=== PATIENT | female | born 1940 | race Caucasian/White ===

== ENCOUNTER 2017-06-20 20:23 | Emergency (ER) | payer MEDICARE ==
--- NOTE | 2017-06-20 21:51 | ERPHSYRPT ---
- History of Present Illness Time Seen by Provider: 06/20/17 21:40 Source: patient Exam Limitations: no limitations Patient Subjective Stated Complaint: slid down small hill in the [place], and recieved skin tears on lt forearm. Triage Nursing Assessment: 3 skin tears noted on lt forearm. distal tear 3 cm. medial tear 4 cm and proximal tear 5 cm. denies other sx. denies loc. sensation of hand normal Physician History: The patient is a right-handed 76-year-old female with her complaining that she slipped on a hill while much reminding this afternoon, causing some skin tears to her left forearm. She had her last tetanus vaccination within 1 year. She denies numbness or tingling. Her past medical history is significant for high cholesterol, congestive heart failure, hypertension, COPD, stroke, and stage IV renal disease. Occurred: this afternoon Reason for Fall: slipped, fell from standing pos Injuries/Pain Location: upper extremity (left forearm) Loss of Consciousness: no loss of consciousness Quality: other (skin tears) Severity of Pain-Max: mild Severity of Pain-Current: mild Modifying Factors: Improves With: nothing Associated Symptoms (Fall): denies symptoms Allergies/Adverse Reactions: aspirin Adverse Reaction (Intermediate, Verified 06/04/15 15:08) atropine sulfate [From ] Adverse Reaction (Intermediate, Verified 15:08) Lightheadedness hydromorphone HCl [From Dilaudid] Adverse Reaction (Intermediate, Verified 06/03 15:09) Vomiting hyoscyamine sulfate [From ] Adverse Reaction (Intermediate, Verified 07/14 15:08) Lightheadedness phenobarbital [From ] Adverse Reaction (Intermediate, Verified 06/04/15 15:08) Lightheadedness propoxyphene napsylate [From Darvocet-N] Adverse Reaction (Intermediate, Verified 06/04/15 15:08) Lightheadedness scopolamine hydrobromide [From ] Adverse Reaction (Intermediate, Verified 06/04/15 15:08) Lightheadedness Home Medications: Albuterol 2.5 mg/0.5 ml [PROVENTIL Solution 2.5 MG/0.5 ML] 2 inh Q12H PRN PRN 04/05/15 [History] Amlodipine Besylate 5 mg [Norvasc 5 mg] 5 mg PO DAILY 04/05/15 [History] Clopidogrel Bisulfate [Plavix] 75 mg PO DAILY 04/05/15 [History] Diphenoxylate HCl/Atropine [Lomotil] 1 tab PO Q4-6HPRN PRN 04/05/15 [ History] Docusate Sodium [Colace] 1 tab PO DAILY PRN 04/05/15 [History] Fenofibrate Nanocrystallized [Tricor] 1 tab PO DAILY 04/05/15 [History] Fexofenadine HCl [Solange] 180 mg PO DAILY 04/05/15 [History] Hydrochlorothiazide 25 mg PO DAILY 04/05/15 [History] Hydrocodone/Acetaminophen [Vicodin 5-300 mg Tablet] 5 mg PO Q4-6HPRN PRN [History] Lansoprazole [Prevacid] 30 mg PO DAILY 04/05/15 [History] Mometasone Furoate [Nasonex] 1 each Q12H PRN PRN 04/05/15 [History] Nebivolol HCl [Bystolic] 10 mg PO DAILY 04/05/15 [History] Nystatin 1 each Q12H PRN PRN 04/05/15 [History] Paricalcitol [Zemplar] 1 mcg PO 3XW 04/05/15 [History] Potassium Chloride 20 mg PO DAILY 04/05/15 [History] Simvastatin 40 mg [Zocor 40 mg] 20 mg PO DAILY 04/05/15 [History] Venlafaxine HCl [Effexor] 150 mg PO DAILY 04/05/15 [History] Budesonide/Formoterol Fumarate [Symbicort 160-4.5 Mcg Inhaler] 6 gm IH DAILY 07/14 [History] Donepezil HCl 10 mg [Aricept 10 MG] 10 mg PO HS 06/04/15 [History] Ergocalciferol (Vitamin D2) [Vitamin D2] 1 unit PO WEEKLY 06/04/15 [History] Folic Acid 1 tab PO DAILY 06/04/15 [History] Hx Tetanus, Diphtheria Vaccination/Date Given: Yes Hx Influenza Vaccination/Date Given: No Hx Pneumococcal Vaccination/Date Given: Yes - Review of Systems Constitutional: No Fever, No Chills Eyes: No Symptoms Ears, Nose, & Throat: No Symptoms Respiratory: No Cough, No Dyspnea Cardiac: No Chest Pain, No Edema, No Syncope Abdominal/Gastrointestinal: No Abdominal Pain, No Nausea, No Vomiting, No Diarrhea Genitourinary Symptoms: No Dysuria Musculoskeletal: Fall, Injury Skin: Other (skin tears) Neurological: No Dizziness, No Focal Weakness, No Sensory Changes Psychological: No Symptoms Endocrine: No Symptoms Hematologic/Lymphatic: No Symptoms Immunological/Allergic: No Symptoms All Other Systems: Reviewed and Negative - Past Medical History Pertinent Past Medical History: Yes Neurological History: Stroke, TIA ENT History: No Pertinent History Cardiac History: Hypertension Respiratory History: Bronchitis, COPD Endocrine Medical History: No Pertinent History Musculoskeletal History: Arthritis GI Medical History: Colorectal Cancer, Hernia History: Renal Disease Psycho-Social History: No Pertinent History Female Reproductive Disorders: No Pertinent History Other Medical History: AAA. Renal failure. prior skin tears on same arm (lt) - Past Surgical History Past Surgical History: Yes Neuro Surgical History: No Pertinent History Cardiac: No Pertinent History Respiratory: No Pertinent History Gastrointestinal: Hemorrhoidectomy Genitourinary: No Pertinent History Musculoskeletal: Other Female Surgical History: Hysterectomy Other Surgical History: FISTULA PLACED; PORT PLACED FOR CHEMO X2; BLADDER SURGERY; LEFT FOOT SURGERY; MASS REMOVED FROM HER LEFT SHOULDER AREA - Social History Smoking Status: Former smoker Exposure to second hand smoke: Yes Drug Use: none Patient Lives Alone: Yes - Female History Hx Now: No - Nursing Vital Signs Nursing Vital Signs: Initial Vital Signs Temperature 98.1 F 06/20/17 20:39 Pulse Rate 76 06/20/17 20:39 Respiratory Rate 20 06/20/17 20:39 Blood Pressure 160/67 06/20/17 20:39 O2 Sat by Pulse Oximetry 97 06/20/17 20:39 Pain Scale Pain Intensity 10 - [place] Coma Score Best Eye Response ([place]): (4) open spontaneously Best Verbal Response ([place]): (5) oriented Best Motor Response ([place]): (6) obeys commands [place] Total: 15 - Physical Exam General Appearance: no apparent distress, alert Head Injury: no evidence of injury Eye Exam: PERRL/EOMI ENT Exam: airway nml Neck Exam: normal inspection, No tenderness Respiratory/Chest Exam: normal breath sounds, No chest tenderness, No respiratory distress Cardiovascular Exam: normal heart sounds, regular rate/rhythm Gastrointestinal Exam: soft, No tenderness, No distention, No guarding, No ecchymosis Rectal Exam: not done Back Exam: normal inspection, No vertebral tenderness Extremity Exam: evidence of injury (skin tears to left forearm) Neurologic Exam: alert, oriented x 3, cooperative, sensation nml, No motor deficits Skin Exam: other (Examination of the left forearm reveals 3 skin tears. Distal is 3 cm, mid forearm skin tear is 4 cm, and proximal skin tear is 5 cm.) SpO2 Interpretation: normal SpO2: 97 Oxygen Delivery: Room Air Ordered Tests: Active Orders 24 hr Category Date Time Status Wound Care STAT Care 06/20/17 21:58 Active - Progress Progress: improved Counseled pt/family regarding: diagnosis, need for follow-up - Departure Time of Disposition: 22:40 Departure Disposition: Home Clinical Impression: Skin tear Condition: Stable Critical Care Time: No Referrals: VENTURA RICHMOND [Primary Care Provider] - Additional Instructions: You have several skin tears to the left forearm as result of slipping and falling down the hill while mushroom hunting today. The skin tears were closed with Steri-Strips. You were given cephalexin 500 mg orally in the ER. Continue taking cephalexin 500 mg 2 times a day for 10 days. Follow-up as needed. Prescriptions: Cephalexin [Keflex] 500 mg PO BID #20 capsule
[2017-06-20] MEDS ORDERED: KEFLEX 500 MG PO ONE (22:44)
[2017-06-20] MEDS ORDERED: KEFLEX 500 MG ONE (22:46)
[2017-06-20 23:00] VITALS: BP 170/69; PULSE 72; O2SAT 98
== END 2017-06-20 23:00 | disposition home or self-care (01) ==
LOC: ED 20:23
DX: S51.812A Laceration without foreign body of left forearm, initial encounter (principal); W17.89XA Other fall from one level to another, initial encounter; Y93.01 Activity, walking, marching and hiking; Z79.01 Long term (current) use of anticoagulants; Z79.899 Other long term (current) drug therapy
CPT/HCPCS: 99283; A9270-GY

== ENCOUNTER 2017-06-30 16:51 | Emergency (ER) | payer MEDICARE ==
--- NOTE | 2017-06-30 17:15 | ERPHSYRPT ---
- History of Present Illness Time Seen by Provider: 06/30/17 17:07 Source: patient Exam Limitations: clinical condition Patient Subjective Stated Complaint: pt brought to ed per ems from dialysis- states that she fell wednesday and it hurts to cough or deep breath-states that last night she was walking and got lost in her neighborhood-pt states that it started turning dark and things started looking the same Triage Nursing Assessment: pt pink warm and [id number] all questions correctly-moving all extremities-bruising noted to face-right flank-right arm- pt speaking in complete sentences with ease Physician History: PATIENT WITH A HISTORY OF CHRONIC RENAL FAILURE ON HEMODIALYSIS, HAS FREQUENT FALLS X 3 WEEKS. SUSTAINED A LEFT FOREARM SKIN TEAR FROM FALL ON 06/20/2017. FELL 3 DAYS AGO ONTO FACE SUSTAINED BRUISING AROUND RIGHT EYE, RIGHT SHOULDER AND RIGHT UPPER CHEST WALL. DENIES NECK PAIN , LOSS OF CONSCIOUSNESS, NUMBNESS , TINGLING OR WEAKNESS IN EXTREMITIES. Occurred: days ago Reason for Fall: lost balance Injuries/Pain Location: head, face, upper extremity, lower Loss of Consciousness: no loss of consciousness Quality: sharpness Severity of Pain-Max: moderate Severity of Pain-Current: moderate Modifying Factors: Improves With: movement Allergies/Adverse Reactions: aspirin Adverse Reaction (Intermediate, Verified 06/30/17 17:05) atropine sulfate [From ] Adverse Reaction (Intermediate, Verified 17:05) Lightheadedness hydromorphone HCl [From Dilaudid] Adverse Reaction (Intermediate, Verified 06/30 17:05) Vomiting hyoscyamine sulfate [From ] Adverse Reaction (Intermediate, Verified 04/18 17:05) Lightheadedness phenobarbital [From ] Adverse Reaction (Intermediate, Verified 06/30/17 17:05) Lightheadedness propoxyphene napsylate [From Darvocet-N] Adverse Reaction (Intermediate, Verified 06/30/17 17:05) Lightheadedness scopolamine hydrobromide [From ] Adverse Reaction (Intermediate, Verified 06/30/17 17:05) Lightheadedness Hx Tetanus, Diphtheria Vaccination/Date Given: Yes Hx Influenza Vaccination/Date Given: No Hx Pneumococcal Vaccination/Date Given: Yes Immunizations Up to Date: Yes - Review of Systems Constitutional: No Fever, No Chills Eyes: No Symptoms Ears, Nose, & Throat: No Symptoms, Other (FACIAL PAIN AND BRUISING) Respiratory: Dyspnea on Exertion ([place]), No Cough, No Dyspnea Cardiac: Other (CHEST WALL TENDERNESS, BRUISING), No Chest Pain, No Edema, No Syncope Abdominal/Gastrointestinal: No Abdominal Pain, No Nausea, No Vomiting, No Diarrhea Genitourinary Symptoms: No Symptoms, No Dysuria Musculoskeletal: Injury, Joint Pain, Joint Swelling, No Back Pain, No Neck Pain Skin: No Rash Neurological: No Dizziness, No Focal Weakness, No Sensory Changes Psychological: No Symptoms Endocrine: No Symptoms All Other Systems: Reviewed and Negative - Past Medical History Pertinent Past Medical History: Yes Neurological History: Stroke, TIA ENT History: No Pertinent History Cardiac History: Hypertension Respiratory History: Bronchitis, COPD Endocrine Medical History: No Pertinent History Musculoskeletal History: Arthritis GI Medical History: Colorectal Cancer, Hernia History: Renal Disease Psycho-Social History: No Pertinent History Female Reproductive Disorders: No Pertinent History Other Medical History: AAA. Renal failure - Past Surgical History Past Surgical History: Yes Neuro Surgical History: No Pertinent History Cardiac: No Pertinent History Respiratory: No Pertinent History Gastrointestinal: Hemorrhoidectomy Genitourinary: No Pertinent History Musculoskeletal: Other Female Surgical History: Hysterectomy Other Surgical History: FISTULA PLACED; PORT PLACED FOR CHEMO X2; BLADDER SURGERY; LEFT FOOT SURGERY; MASS REMOVED FROM HER LEFT SHOULDER AREA - Social History Smoking Status: Former smoker Exposure to second hand smoke: Yes Drug Use: none Patient Lives Alone: Yes - Nursing Vital Signs Nursing Vital Signs: Initial Vital Signs Temperature 97.8 F 06/30/17 16:54 Pulse Rate 90 06/30/17 16:54 Respiratory Rate 20 06/30/17 16:54 Blood Pressure 178/75 06/30/17 16:54 O2 Sat by Pulse Oximetry 97 06/30/17 16:54 Pain Scale Pain Intensity 10 - [place] Coma Score Best Eye Response ([place]): (4) open spontaneously Best Verbal Response ([place]): (5) oriented Best Motor Response ([place]): (6) obeys commands [place] Total: 15 - Physical Exam General Appearance: no apparent distress Head Injury: ecchymosis, tenderness (RIGHT PERIORBITAL ECCHYMOSIS, NO FACIAL CREPITUS ) Eye Exam: PERRL/EOMI ENT Exam: airway nml, evidence of ENT injury Neck Exam: normal inspection, tenderness (THERE IS MINIMAL POST CERVICAL SPINAL TENDERNESS) Respiratory/Chest Exam: chest tenderness (WITH ECCHYMOSIS RIGHT 2-4 RIBS NO CREPITUS), normal breath sounds Cardiovascular Exam: normal heart sounds Gastrointestinal Exam: soft, normal bowel sounds, No tenderness, No distention, No guarding, No ecchymosis Extremity Exam: normal range of motion (SLIGHT ECCHYMOSIS RIGH HUMERAL HEAD, NO CREPITUS OR SWELLING.) Peripheral Pulses: carotid (R): 2+, carotid (L): 2+, femoral (R): 2+, femoral (L ): 2+, dorsalis-pedis (R): 2+, dorsalis-pedis (L): 2+ Neurologic Exam: alert, oriented x 3, cooperative, 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 SpO2 Interpretation: normal SpO2: 97 Oxygen Delivery: Room Air - Radiology Exams Right Shoulder X-ray Interpretation: Interpreted by me, Negative (NO FRACTURE OR DISLOCATION) Chest X-ray Interpretation: Interpreted by me, Negative, Other (OLD RIGHT 7TH AND 9TH RIB HEALING RIB FRACTURES) Right Ribs X-ray Interpretation: Interpreted by me (RIGHT HEALING 7TH AND 9TH RIBS FRACTURE ) - CT Exams Head CT Interpretation: Discussed w/radiologist, No/Intracranial Hemorrhag (RIGHT MAXILLARY SINUS DISEASE) Cervical Spine CT Interpretation: Discussed w/radiologist (MULTIPLE DDD , NO FRACTURE) Maxillofacial Bones CT Interpretation: Discussed w/radiologist (RIGHT ETHMOID AND RIGHT MAXILLARY SINUS DISEASE) Ordered Tests: Active Orders 24 hr Category Date Time Status CERVICAL SPINE WO CONTRAST [CT] Stat Exams 06/30/17 16:52 Taken CHEST 1 VIEW (PORTABLE) Stat Exams 06/30/17 16:57 Taken FACIAL BONES WO CONTRAST [CT] Stat Exams 06/30/17 16:52 Taken FOREARM Stat Exams 06/30/17 16:59 Taken HEAD WITHOUT CONTRAST [CT] Stat Exams 06/30/17 16:52 Taken RIBS UNILATERAL Stat Exams 06/30/17 16:55 Taken SHOULDER Stat Exams 06/30/17 17:05 Taken - Progress Counseled pt/family regarding: diagnosis, need for follow-up, rad results - Departure Time of Disposition: 19:05 Departure Disposition: Home Clinical Impression: MULTIPLE FACIAL CONTUSIONS, OLD RIGHT HEALING RIB FRACTURES 7TH 9TH Condition: Stable Critical Care Time: No Referrals: BASILIO,SHREELEKHA [Primary Care Provider] - Additional Instructions: CONTINUE ANTIBIOTIC KEFLEX DIRECTED. THEN BEGIN OMNICEF 300MG TWICE DAILY FOR 1 WEEK FOR TREATMENT OF SINUS INFECTION. CONSULT YOUR PRIMARY CARE PROVIDER FOR FOLLOWUP. AMBULATE WITH WALKER ASSISTANCE AT ALL TIMES Prescriptions: Cefdinir [Omnicef 300 mg] 300 mg PO BID #14 capsule
[2017-06-30] MEDS ORDERED: Catapres 0.1 MG PO ONE (19:22)
[2017-06-30] MEDS ORDERED: Catapres 0.1 MG ONE (19:23)
[2017-06-30 20:19] VITALS: BP 184/82; PULSE 91; O2SAT 96
--- NOTE | 2017-07-01 08:33 | XRAY ---
Indication: Facial pain and bruising following fall June 20, 2017. Multiple contiguous axial images obtained through the facial bones. Sagittal and coronal reformatted images obtained. Comparison: February 11, 2017. Several images slightly degraded by motion artifact. Patient is edentulous. No acute fracture, suspicious bony lesions, or radiopaque foreign body. Orbits including roof, ferreira, and floors intact. There is moderate mucosal thickening of the right ethmoid and right maxillary sinuses with fluid leveling. Remaining paranasal sinuses and nasal passages are clear. Mild nasal septal deviation to the left. Visualized noncontrasted soft tissues unremarkable. CT head and CT cervical spine reported separately. Impression: 1. Motion artifact. 2. No acute fracture. 3. Incidental paranasal sinus disease. CT DI 59.47
--- NOTE | 2017-07-01 08:34 | XRAY ---
Indication: Facial pain and bruising following fall June 20, 2017. Multiple contiguous axial images obtained through the head without contrast. Comparison: None Images through the base of the brain slightly degraded by motion artifact. Right caudate head and right basal ganglia remote lacunar infarct. Acute intracranial hemorrhage, abnormal extra-axial fluid collection, or mass effect. Fourth ventricle is midline without hydrocephalus. Lambert-white matter differentiation preserved. Bony calvarium intact with hyperostosis frontalis interna. There is moderate mucosal thickening of the right ethmoid and visualized right maxillary sinus is with fluid leveling. Remaining visualized paranasal sinuses and mastoid air cells are clear. Impression: 1. Motion artifact. 2. Right caudate head and right basal ganglia remote lacunar infarcts. 3. No acute intracranial abnormalities. 4. Incidental paranasal sinus disease. CT DI 49.85
--- NOTE | 2017-07-01 08:35 | XRAY ---
Indication: Facial pain and bruising following fall June 20, 2017. Multiple contiguous axial images obtained through the cervical spine. Sagittal and coronal reformatted images obtained. Comparison: None. Axial images negative for acute fracture, suspicious bony lesions, or spinal canal stenosis. Mild C4-C6 degenerative endplate spurring. Also mild multilevel bilateral degenerative facet arthropathy. Sagittal and coronal reformatted images demonstrates normal alignment. Minimal C5-C6 disc space narrowing. No acute compression fracture, subluxation, or jumped facet. Normal-appearing craniocervical junction. Visualized noncontrasted soft tissues demonstrates minimal right carotid calcifications. CT head and CT facial bones reported separately. Impression: 1. Negative acute fracture/subluxation. 2. Multilevel degenerative changes. CT DI 52.40
--- NOTE | 2017-07-01 08:37 | XRAY ---
Indication: Right chest wall bruising following fall. Comparison: February 04, 2016. Portable chest again hyperinflated with chronic lung markings and tiny calcific granulomas. No focal infiltrate, consolidation, pneumothorax, or large effusion. Heart is borderline enlarged. Vascularity normal. Previous left Port-A-Cath has been removed. Bony thorax again demonstrates osteopenia and degenerative changes. Right ribs reported separately. Impression: Nonacute chest with chronic features.
--- NOTE | 2017-07-01 08:41 | XRAY ---
Indication: Right chest wall bruising following fall. Comparison: None 2 views of the right ribs demonstrates nondisplaced lateral right 2nd rib acute fracture. Elsewhere old posterior lateral /8/9 old rib fractures, osteopenia, and mild multilevel degenerative spondylosis. Chest reported separately. Comment: 2nd rib fracture not reported on preliminary interpretation by the ER clinician. Telephone report given to Dr. Castillo in the ER at 0845 hrs. on July 01, 2017.
--- NOTE | 2017-07-01 08:45 | XRAY ---
Indication: Pain following fall. Comparison: None 2 views of the left forearm demonstrates nondisplaced proximal radial fracture extending to the head of the radius with soft tissue swelling. Elsewhere osteopenia and surgical clips anterior to the elbow. Comment: Fracture not reported on linear interpretation by the ER clinician. Telephone report given to Dr. Castillo in the ER at 0845 hrs. on July 01, 2017.
--- NOTE | 2017-07-01 08:47 | XRAY ---
Indication: Pain following fall. Comparison: None 3 views of the right shoulder demonstrates osteopenia, multilevel degenerative spondylosis, and mild AC degenerative arthropathy. Soft tissues unremarkable. Right ribs reported separately.
== END 2017-06-30 20:30 | disposition home or self-care (01) ==
LOC: ED 16:51
DX: S00.11XA Contusion of right eyelid and periocular area, initial encounter (principal); R51 Headache; S51.812A Laceration without foreign body of left forearm, initial encounter; M25.511 Pain in right shoulder; R07.89 Other chest pain; M79.662 Pain in left lower leg; M79.661 Pain in right lower leg; M79.602 Pain in left arm; M79.601 Pain in right arm; W19.XXXA Unspecified fall, initial encounter; Z91.81 History of falling
CPT/HCPCS: 70450; 70486; 71045; 71100; 72125; 73030; 73090; 99283; 99284; A9270-GY

== ENCOUNTER 2018-01-17 20:04 | Observation (INO) | payer MEDICARE ==
--- NOTE | 2018-01-17 21:00 | ERPHSYRPT ---
- History of Present Illness Time Seen by Provider: 01/17/18 20:47 Source: patient, family Exam Limitations: no limitations Patient Subjective Stated Complaint: Fall Triage Nursing Assessment: Patient brought into ED via w/c at this time. Patient complains of a fall prior to 1900. Patient states she was eating at a dinner at her [employer] and got up out of chair and fell, but body twisted around causing her chin to hit the table and falling to paramjit arms. Patient denies hitting head or losing consciousness. Patient complains of neck pain, left arm and left knee pain 11/08. Patient has various, multiple bruising noted to paramjit arms, paramjit knees, and breast. Bruise to breast has a hard area in the middle of it. Patient A+ O X 3. Patient lungs clear a/p paramjit. Physician History: The patient is a 77-year-old female complaining that she fell at a [employer] supper [place]. She has a hard time walking and uses a walker. She did not use the walker while she was getting up. She twisted and fell hitting her chin, upper chest, right breast right forearm, right knee, and left knee. She did not lose consciousness nor hit her head. She complains of pain in her neck and knees. She has a skin tear that was bandaged at [employer] on her right forearm. She does not know when her last tetanus vaccination was given. Her past medical history is significant for stroke, renal failure, fistula for dialysis, rectal cancer, COPD. Occurred: this evening Reason for Fall: lost balance, fell from standing pos Injuries/Pain Location: neck, upper extremity (right forearm), chest, lower extremity (bilateral knees) Loss of Consciousness: no loss of consciousness Quality: aching Severity of Pain-Max: moderate Severity of Pain-Current: mild Modifying Factors: Improves With: nothing Associated Symptoms (Fall): extremity injury, neck pain Allergies/Adverse Reactions: aspirin Adverse Reaction (Intermediate, Verified 01/17/18 20:28) atropine sulfate [From ] Adverse Reaction (Intermediate, Verified 20:28) Lightheadedness hydromorphone HCl [From Dilaudid] Adverse Reaction (Intermediate, Verified 01/17 20:28) Vomiting hyoscyamine sulfate [From ] Adverse Reaction (Intermediate, Verified 20:28) Lightheadedness phenobarbital [From ] Adverse Reaction (Intermediate, Verified 01/17/18 20:28) Lightheadedness propoxyphene napsylate [From Darvocet-N] Adverse Reaction (Intermediate, Verified 01/17/18 20:28) Lightheadedness scopolamine hydrobromide [From ] Adverse Reaction (Intermediate, Verified 01/17/18 20:28) Lightheadedness Hx Tetanus, Diphtheria Vaccination/Date Given: Yes Hx Influenza Vaccination/Date Given: Yes Hx Pneumococcal Vaccination/Date Given: Yes Immunizations Up to Date: No - Review of Systems Constitutional: No Fever, No Chills Eyes: No Symptoms Ears, Nose, & Throat: No Symptoms Respiratory: No Cough, No Dyspnea Cardiac: Chest Pain Abdominal/Gastrointestinal: No Abdominal Pain, No Nausea, No Vomiting, No Diarrhea Genitourinary Symptoms: No Dysuria Musculoskeletal: Fall, Injury Skin: No Rash Neurological: No Dizziness, No Focal Weakness, No Sensory Changes Psychological: No Symptoms Endocrine: No Symptoms Hematologic/Lymphatic: No Symptoms Immunological/Allergic: No Symptoms All Other Systems: Reviewed and Negative - Past Medical History Pertinent Past Medical History: Yes Neurological History: Stroke, TIA ENT History: No Pertinent History Cardiac History: Hypertension Respiratory History: Bronchitis, COPD Endocrine Medical History: No Pertinent History Musculoskeletal History: Arthritis GI Medical History: Colorectal Cancer, Hernia History: Renal Disease Psycho-Social History: No Pertinent History Female Reproductive Disorders: No Pertinent History Other Medical History: AAA. Renal failure - Past Surgical History Past Surgical History: Yes Neuro Surgical History: No Pertinent History Cardiac: No Pertinent History Respiratory: No Pertinent History Gastrointestinal: Hemorrhoidectomy Genitourinary: No Pertinent History Musculoskeletal: Other Female Surgical History: Hysterectomy Other Surgical History: FISTULA PLACED; PORT PLACED FOR CHEMO X2; BLADDER SURGERY; LEFT FOOT SURGERY; MASS REMOVED FROM HER LEFT SHOULDER AREA - Social History Smoking Status: Former smoker Exposure to second hand smoke: Yes Drug Use: none Patient Lives Alone: Yes - Female History Hx Last Menstrual Period: menopausal Hx Now: No - Nursing Vital Signs Nursing Vital Signs: Initial Vital Signs Temperature 97.7 F 01/17/18 20:28 Pulse Rate 70 01/17/18 20:28 Respiratory Rate 18 01/17/18 20:28 Blood Pressure 175/69 01/17/18 20:28 O2 Sat by Pulse Oximetry 96 01/17/18 20:28 Pain Scale Pain Intensity 8 - [place] Coma Score Best Eye Response ([place]): (4) open spontaneously Best Verbal Response ([place]): (5) oriented Best Motor Response ([place]): (6) obeys commands [place] Total: 15 - Physical Exam General Appearance: no apparent distress, alert Head Injury: no evidence of injury Eye Exam: PERRL/EOMI ENT Exam: airway nml Neck Exam: trachea midline, pain on movement of neck, other (bruising and tenderness to anterior neck, small bruise to chin) Respiratory/Chest Exam: chest tenderness, ecchymosis (tenderness and bruising to upper anterior chest. Large hematoma to right breast.) Cardiovascular Exam: normal heart sounds, regular rate/rhythm Gastrointestinal Exam: soft, No tenderness, No distention, No guarding, No ecchymosis Rectal Exam: not done Back Exam: normal inspection, No vertebral tenderness Extremity Exam: pain with movement, tenderness (tenderness and bruising to bilateral knees. superficial abrasion to right knee; skin tear to right forearm. ) Neurologic Exam: alert, oriented x 3, cooperative, sensation nml, No motor deficits Skin Exam: normal color, warm, dry, ecchymosis (right breast, bilateral knees, chest, neck.), laceration (skint tear to right forearm that was repaired with steri-strips at [employer].) SpO2 Interpretation: normal SpO2: 96 Oxygen Delivery: Room Air - Radiology Exams Right Forearm X-ray Interpretation: Interpreted by me, Negative, No Fracture, No Subluxation Left Knee X-ray Interpretation: Negative, No Fracture, No Subluxation - CT Exams Head CT Interpretation: Negative (stable nonacute senile brain; remote lacunar infarcts; incidental paranasal sinus disease again.), Tele-radiologist Report ( per Dr Quiñones) Cervical Spine CT Interpretation: Tele-radiologist Report (per Dr Quiñones), No Fracture, No Subluxation Ordered Tests: Active Orders 24 hr Category Date Time Status CERVICAL SPINE WO CONTRAST [CT] Stat Exams 01/17/18 21:09 Taken FOREARM Stat Exams 01/17/18 21:10 Taken HEAD WITHOUT CONTRAST [CT] Stat Exams 01/17/18 21:09 Ordered KNEE (3 VIEWS) Stat Exams 11/19/18 21:09 Ordered KNEE (3 VIEWS) Stat Exams 01/17/18 21:12 Ordered Medication Summary Discontinued Medications Generic Name Dose Route Start Last Admin Trade Name Andreas PRN Reason Stop Dose Admin Acetaminophen 1,000 mg 01/17/18 21:08 01/17/18 21:23 Tylenol Extra Strength 500 Mg PO 01/17/18 21:09 1,000 mg STAT STA Administration Acetaminophen Confirm 01/17/18 21:21 Tylenol Extra Strength 500 Mg Administered 01/17/18 21:22 Dose 1,000 mg .ROUTE .STK-MED ONE Diphtheria/Tetanus/Acell Pertussis 0.5 ml 01/17/18 22:40 01/17/18 22:51 Adacel Vial IM 01/17/18 22:41 0.5 ml .ONCE ONE Administration Diphtheria/Tetanus/Acell Pertussis Confirm 01/17/18 22:47 Adacel Vial Administered 01/17/18 22:48 Dose 0.5 ml IM .STK-MED ONE - Progress Progress: improved Discussed with : Bev Richmond Will see patient in: hospital (observation) Counseled pt/family regarding: diagnosis, rad results - Departure Time of Disposition: 23:00 Departure Disposition: Observation (per Steve Richmond) Clinical Impression: Fall, Multiple contusions, Hematoma Condition: Stable Critical Care Time: No Referrals: VENTURA RICHMOND [Primary Care Provider] -
[2018-01-17] MEDS ORDERED: TYLENOL EXTRA STRENGTH 500 MG PO STA (21:08)
[2018-01-17] MEDS ORDERED: TYLENOL EXTRA STRENGTH 500 MG ONE (21:21)
[2018-01-17] MEDS ORDERED: Adacel Vial IM ONE ×2 (22:40→22:47)
[2018-01-17 23:46] LABS: BASOPHIL % 0.2 % (0.0-0.4); Basophil (Absolute #) 0.01 (0-0.4); Eosinophil % 1.1 % (0.00-5.0); Eosinophil (Absolute #) 0.06 (0-0.5); Granulocyte Absolute (ANC) 4.24 (1.4-6.9); Hematocrit 35.5 % (35-47); Hemoglobin 10.9 gm/dl (12.0-16.0); Lymphocyte (Absolute #) 0.84 (1.0-4.6); Lymphocytes % 14.9 % (24.0-44.0); Mean Corpuscular Hemoglobin 30.7 pg (26-32); Mean Corpuscular Hgb Concent. 30.7 g/dl (32-36); Mean Platelet Volume 9.4 fl (6-9.5); Monocytes % 8.8 % (0.0-12.0); Platelet Count 236 K/mm3 (150-450); Red Blood Count 3.55 M/mm3 (4.1-5.4); Red Cell Distribution Width 15.8 % (11.5-14.0); White Blood Count 5.7 K/mm3 (4.0-10.5)
[2018-01-18 00:05] LABS: ALBUMIN 3.1 g/dL (3.5-5.0); ANION GAP 10.3 MEQ/L (5-15); BILIRUBIN,TOTAL 0.6 mg/dL (0.2-1.3); Calcium 8.1 mg/dL (8.4-10.2); Creatinine 1 2.36 mg/dL (0.52-1.04); Potassium 3.6 mmol/L (3.5-5.1); Total Protein 6.2 g/dL (6.3-8.2)
[2018-01-18 02:30] LABS: Appearance SLIGHTLY CLOUDY (CLEAR); Bilirubin NEGATIVE (NEGATIVE); Blood NEGATIVE Ery/ul (0-5); Glucose NEGATIVE (NEGATIVE); Ketones NEGATIVE (NEGATIVE); Leukocyte Esterase LARGE (NEGATIVE); Nitrite NEGATIVE (NEGATIVE); Protein,Urine Dip 100 (Negative); Urobilinogen NEGATIVE mg/dL (0-1)
[2018-01-18] MEDS ORDERED: MORPHINE SULFATE 2 MG INJ IV PRN (03:10)
[2018-01-18] MEDS ORDERED: TYLENOL 325 MG PO PRN (03:10)
[2018-01-18] MEDS ORDERED: Zofran 4 MG/2 ML VIAL IV PRN (03:10)
[2018-01-18] MEDS: Sodium Chloride 0.9% 1000 ML 1,000 ML IV SCH ×2 (03:20→13:44)
[2018-01-18] MEDS ORDERED: NORCO 7.5/325 MG TAB PO PRN (08:10)
[2018-01-18] MEDS ORDERED: MEDICATION INTERVENTION MC SCH ×2 (08:45)
--- NOTE | 2018-01-18 08:50 | XRAY ---
Indication: Head injury following fall. Patient on blood thinners. Multiple contiguous axial images obtained through the head without contrast. Comparison: June 30, 2017. Stable right caudates head and right basal ganglia remote lacunar infarcts. Again no acute intracranial hemorrhage, abnormal extra-axial fluid collection, or mass effect. Fourth ventricle is midline without hydrocephalus. Lambert-white matter differentiation preserved. Bony calvarium intact again with hyperostosis frontalis interna. Again incidental mild mucosal thickening of both ethmoid sinuses and fluid leveling in both maxillary sinuses, left greater than right. Mastoid air cells are clear. Impression: 1. No new/acute intracranial abnormalities. 2. Stable right caudate head and right basal ganglia remote lacunar infarcts. 3. Incidental paranasal sinus disease. CTDI 46.90
--- NOTE | 2018-01-18 08:55 | XRAY ---
Indication: Neck pain following fall. Multiple contiguous axial images obtained through the cervical spine. Sagittal and coronal reformatted images obtained. Comparison: June 30, 2017. Axial images again negative for acute fracture, suspicious bony lesions, or spinal canal stenosis. Stable multilevel degenerative endplate spurring and bilateral degenerative facet arthropathy. Sagittal and coronal reformatted images again demonstrates normal alignment with minimal C5-C6 disc space narrowing. No acute compression fracture, subluxation, or jumped facet. Normal appearing craniocervical junction. Visualized noncontrasted soft tissues again demonstrates mild bilateral carotid calcifications and subcentimeter right thyroid nodule/cyst. Lung apices demonstrates pulmonary emphysema with scattered pleural parenchymal fibrosis/scarring. Impression: 1. Again negative acute fracture/subluxation. 2. Stable multilevel degenerative changes. CT DI 57.91
--- NOTE | 2018-01-18 08:57 | XRAY ---
Indication: Pain following fall. Comparison: None 3 views of the right knee demonstrates mild osteopenia, minimal medial joint space narrowing, and minimal posterior vascular calcifications. No other bony, articular, or soft tissue abnormalities.
--- NOTE | 2018-01-18 08:58 | XRAY ---
Indication: Pain following fall. Comparison: None 3 views of the left knee demonstrates mild osteopenia, minimal medial joint space narrowing, and minimal posterior vascular calcifications. No other bony, articular, or soft tissue abnormalities.
--- NOTE | 2018-01-18 09:01 | XRAY ---
Indication: Pain following fall. Comparison: None 2 views of the right forearm demonstrates osteopenia and small distal ulnar shaft enchondroma. Scapholunate widening favors underlying ligamentous tear. No other bony, articular, or soft tissue abnormalities.
[2018-01-18] MEDS ORDERED: Bystolic 5 MG PO SCH (10:00)
[2018-01-18] MEDS ORDERED: NON-FORMULARY ITEM (Folic Acid [Folic Acid] 0.8 MG) PO SCH (10:00)
[2018-01-18] MEDS ORDERED: Effexor XR 75 MG PO SCH (10:00)
[2018-01-18] MEDS ORDERED: SEVELAMER CARBONATE 0.8 GM PO SCH (10:00)
[2018-01-18] MEDS ORDERED: CARDURA 2 MG PO SCH (10:00)
[2018-01-18] MEDS ORDERED: FOLATE 1 MG PO SCH (10:00)
[2018-01-18] MEDS ORDERED: FERRIC CITRATE PO SCH (10:00)
[2018-01-18] MEDS ORDERED: Protonix 40MG Tablet PO SCH (10:00)
[2018-01-18] MEDS: Apresoline 25 MG TABLET PO SCH ×2 (10:15→13:45)
[2018-01-18 16:55] VITALS: BP 178/77; PULSE 71; O2SAT 92
[2018-01-18] MEDS ORDERED: NON-FORMULARY ITEM (Hydroxyzine Hcl [Hydroxyzine Hcl] 10 MG) PO SCH (22:00)
[2018-01-18] MEDS ORDERED: ATARAX 25 MG PO SCH (22:00)
[2018-01-18] MEDS ORDERED: PLAVIX 75 MG Tablet PO SCH (22:00)
[2018-01-18] MEDS ORDERED: NON-FORMULARY ITEM (Amlodipine Besylate 10 Mg [Norvasc 10 Mg] 10 MG) PO SCH (22:00)
[2018-01-18] MEDS ORDERED: NORVASC 5 MG PO SCH (22:00)
[2018-01-18] MEDS ORDERED: Tricor 145 MG PO SCH (22:00)
--- NOTE | 2018-01-19 08:24 | HP ---
HISTORY OF PRESENT ILLNESS: Cristela Cat is a 77 year old woman with past medical history of hypertension, congestive heart failure, chronic renal failure (on dialysis), transient ischemic attack, chronic obstructive pulmonary disease, rectal cancer, hyperlipidemia, chronic pain syndrome, anxiety, depression, chronic anemia and prior history of multiple falls. She was reportedly eating dinner at her [employer] and got up out of a chair and fell. Her body twisted around her chair causing her chin to hit the table behind her and she fell on her bilateral arms. She presented to the emergency room with symptoms of left arm, left knee pain. Also she was noted to have multiple areas of bruising on arms, both knees and right breast. She was noted to be alert, oriented x3. Upon arrival to the emergency room there was no report of patient having any head injury or loss of consciousness with fall. Also there was no reported history of chest pain, increased shortness of breath or back injury with this fall. She did have a skin tear on her right forearm which was bandaged. Initial vitals in the emergency room were: Blood pressure 175/69, heart rate of 70, respiratory rate 18, temperature 97.7F. Oxygen saturation of 96%. After initial work up she was treated with Tylenol Extra Strength 500 mg p.o. x1. Subsequently she was admitted for further monitoring and management. Also, routine troponin obtained in the emergency room was 0.042. However as reported earlier the patient did not report any chest pain or shortness of breath and routine troponin was ordered as follow up of those. The patient was admitted for further monitoring and management. At the time of this evaluation the patient is alert, awake and comfortable. Complains of pain on the right side of breast (at the site of bruise), pain in knees, complains of fatigue. Complains of neck pain. Complains of chin pain. Denies any other complaints. PAST MEDICAL HISTORY: As noted above. The patient has been receiving dialysis on Wednesday, Wednesday and Wednesday. She went to dialysis yesterday. The patient states she is compliant with her medications. Prior history of abdominal aortic aneurysm. PAST SURGICAL HISTORY: Hemorrhoidectomy. Hysterectomy. Fistula. Placement of port. Chemotherapy. Bladder surgery. Left foot surgery. Removal of mass from left shoulder area. ALLERGIES: ASPIRIN, ATROPINE, HYDROMORPHONE, HYOSCYAMINE, PROPOXYPHENE, PHENOBARBITAL, SCOPOLOMINE. MEDICATIONS: Current medications were reviewed. SOCIAL HISTORY: The patient lives at home and is former smoker. Denies illicit drug use. LITIGATION SPECIALIST HISTORY: The patient is post-menopausal. FAMILY HISTORY: Noncontributory. REVIEW OF SYSTEMS: Complains of fatigue. Complains of generalized weakness. Denies fever. Denies chest pain, increased shortness of breath. Complains of dry cough. Denies abdominal pain, nausea or vomiting. Denies constipation or diarrhea. Denies urinary complaints. Complains of pain on right breast area (at the site of bruise). Complains of pain on chin. Complains of pain on knee. Complains of pain on right forearm area. PHYSICAL EXAMINATION: An elderly frail woman lying comfortably in bed, not in acute distress. VITAL SIGNS: Blood pressure 177/77, heart rate 79, respiratory rate 18, temperature 99.3F. Oxygen saturation 91 to 94% on room air. HEENT: Pallor is present. Mild tenderness is present on chin. No other tenderness is noted on facial bones. NECK: No JVD is present. Range of movement of neck is mildly painful. CVS: S1, S2 present. RESPIRATORY: Breath sounds bilaterally diminished and clear to auscultation. ABDOMEN: Obese, soft, nontender. NEURO: She is alert, oriented x3. Evaluation of motor strength in bilateral upper and lower extremities revealed 4+ over 5 motor strength. EXTREMITIES: Examination of right shoulder area revealed tenderness to percussion and painful range of motion. Generalized tenderness is present on right upper extremity. Dressing is present on right forearm area. Local tenderness right forearm. No edema on bilateral lower extremities. Bilateral knees revealed areas of scattered ecchymosis, range of movement of both knees is painful. BACK: Revealed mild tenderness to percussion and cellulitis paraspinal area. No tenderness to percussion is noted in thoracic, lumbar, lumbosacral spine or paraspinal area. BREAST: Examination of right breast area revealed large area of ecchymosis on right breast upper, outer and lower quadrant. Mild tenderness is present. Local tenderness is present. LABORATORY DATA AND TESTS: Labs from yesterday showed CBC with white blood cell of 5.7, hemoglobin 10.9, hematocrit 35, PLT 236,000 otherwise unremarkable. CMP is notable for BUN 33, creatinine 2.36. Troponin has been 0.043, 0.049, 0.052 and 0.047. UA showed 6 to 10 red blood cells, large leukocyte esterase. Urine culture is pending. Head CT shows no new or acute intracranial abnormality, stable right caudate head/basal ganglia, remote lacunar infarct. Cerebral spine CT showed negative acute fracture/subluxation, stable multilevel degenerative changes. Left knee x-ray shows mild osteopenia and no other abnormality. Right knee x-ray showed mild osteopenia, no other abnormality. Right forearm x-ray shows mild osteopenia, no other acute abnormalities. EKG showed sinus arrhythmia at 75 beats/minute. ASSESSMENT: A 77 year old woman with impression: 1) Status post fall. 2) Generalized weakness. 3) Contusion of right breast. 4) Contusion bilateral knees, right upper extremity. 5) Elevated troponin. 6) Chronic renal failure. 7) Hypertension/congestive heart failure. 8) History of chronic obstructive pulmonary disease. 9) Chronic pain syndrome. 10) History of transient ischemic attack. 11) History of rectal cancer. 12) Chronic anemia. 13) Urinary tract infection. 14) Contusion of neck. PLAN: The patient is admitted for further monitoring and management. Continue fall precautions. Continue PRN analgesics. With regards to contusion of right breast will obtain right breast ultrasound. Will also obtained additional x-rays of right shoulder and right arm area. Continue local ice pack. Continue PT as tolerated. With regards to elevated troponin cardiology has been consulted however is unable to evaluate the patient at [facility] until tomorrow morning. The patient is scheduled for dialysis tomorrow. The patient cannot be discharged until cleared by cardiology given all those factors. Also the patient cannot be evaluated by cardiology prior to dialysis. Given all of this, discussed with the patient and her family regarding likely transfer to [facility] where the patient can be evaluated by cardiology as well as can undergo her dialysis. The patient's family were agreeable with that. After discussion with patient and family, the patient is being transferred to [facility] in stable condition. The patient will be evaluated by cardiology there. Additional management of elevated troponins by cardiology. The patient will undergo dialysis there tomorrow. If cleared by cardiology, the patient will likely be discharged after undergoing dialysis there tomorrow. The plan was discussed with patient and family. They seem to be in understanding and agreement. Discussed with patient's nurse, Eulalia.
[2018-01-23] MEDS ORDERED: VITAMIN D PO SCH (08:15)
== END 2018-01-18 18:03 | disposition short-term general hospital (02) ==
LOC: ED 20:04 → MED SURG 01-18 03:06
PROVIDERS: ADMIT General Practice; ATTEND General Practice
DX: M62.81 Muscle weakness (generalized) (principal); S20.01XA Contusion of right breast, initial encounter; S80.02XA Contusion of left knee, initial encounter; S80.01XA Contusion of right knee, initial encounter; S51.811A Laceration without foreign body of right forearm, initial encounter; W08.XXXA Fall from other furniture, initial encounter; Y92.22 Religious institution as the place of occurrence of the external cause; M54.2 Cervicalgia; M25.562 Pain in left knee; M25.561 Pain in right knee; Z86.73 Personal history of transient ischemic attack (TIA), and cerebral infarction without residual deficits; Z85.048 Personal history of other malignant neoplasm of rectum, rectosigmoid junction, and anus; G89.4 Chronic pain syndrome; F41.9 Anxiety disorder, unspecified; F32.9 Major depressive disorder, single episode, unspecified; Z99.2 Dependence on renal dialysis; M85.832 Other specified disorders of bone density and structure, left forearm; M85.861 Other specified disorders of bone density and structure, right lower leg; R74.8 Abnormal levels of other serum enzymes; I13.0 Hypertensive heart and chronic kidney disease with heart failure and stage 1 through stage 4 chronic kidney disease, or unspecified chronic kidney disease; N18.9 Chronic kidney disease, unspecified; I50.9 Heart failure, unspecified; D53.9 Nutritional anemia, unspecified; N39.0 Urinary tract infection, site not specified; S10.93XA Contusion of unspecified part of neck, initial encounter; Z79.899 Other long term (current) drug therapy
CPT/HCPCS: 36000; 36415; 70450; 72125; 73090; 73562; 80053; 81001; 84484; 85025; 87086; 90471; 93005; 93268; 99285; G0378; 90715; A9270-GY

== ENCOUNTER 2018-06-17 17:29 | Emergency (ER) | payer MEDICARE ==
[2018-06-17 17:59] VITALS: PULSE 71
[2018-06-17] MEDS ORDERED: Augmentin 875-125 Tablet PO ONE (18:16)
--- NOTE | 2018-06-17 18:16 | ERPHSYRPT ---
- History of Present Illness Time Seen by Provider: 06/17/18 17:50 Source: patient Exam Limitations: clinical condition Patient Subjective Stated Complaint: swelling and blisters to both lower legs for two weeks. hx ckd with dialysis. had dialysis toay. Triage Nursing Assessment: to room per w/c. assisted to bed after using commode. urine dark yellow. moderate swelling noted to both ankles. has two blisters to left lower leg, one blister is open and draining. Physician History: PATIENT WITH A HISTORY OF CVA, COPD, HYPERTENSION, CHRONIC RENAL FAILURE, ON DIALYSIS COMPLAINS OF SWELLING IN BOTH ANKLES, HAS NOTICED BLISTERS OVER LEFT KEARNEY AND CALF AND A SKIN LESION ON HER LEFT BUTTOCK OVER THE PAST 2 WEEKS. HAS SCHEDULED DIALYSIS WED-WED-WED, SOMETIMES NONCOMPLIANT WITH WEDNESDAY DIALYSIS. HAD DIALYSIS TODAY AND DENIES CHEST PAIN, DYSPNEA OR FEVER. Method of Injury: other (DENIES INJURY OR TRAUMA) Occurred: other (2 WEEKS AGO) Severity of Pain-Max: none Severity of Pain-Current: none Lower Extremities Pain: leg: left Modifying Factors: Improves With: nothing Associated Symptoms: none Allergies/Adverse Reactions: aspirin Adverse Reaction (Intermediate, Verified 06/17/18 18:00) atropine sulfate [From ] Adverse Reaction (Intermediate, Verified 18:00) Lightheadedness hydromorphone HCl [From Dilaudid] Adverse Reaction (Intermediate, Verified 06/17 18:00) Vomiting hyoscyamine sulfate [From ] Adverse Reaction (Intermediate, Verified 18:00) Lightheadedness phenobarbital [From ] Adverse Reaction (Intermediate, Verified 06/17/18 18:00) Lightheadedness propoxyphene napsylate [From Darvocet-N] Adverse Reaction (Intermediate, Verified 06/17/18 18:00) Lightheadedness scopolamine hydrobromide [From ] Adverse Reaction (Intermediate, Verified 06/17/18 18:00) Lightheadedness Home Medications: Amlodipine Besylate 10 mg [Norvasc 10 MG] 10 mg PO QHS 01/18/18 [History] Clopidogrel Bisulfate 75 mg [PLAVIX 75 MG Tablet] 75 mg PO QHS 01/18/18 [ History] Doxazosin Mesylate 2 mg [Cardura 2 mg] 2 mg PO DAILY 01/18/18 [History] Fenofibrate Nanocrystallized [Fenofibrate] 145 mg PO QHS 01/18/18 [History] Folic Acid 0.8 mg PO DAILY 01/18/18 [History] HydrALAzine HCL 25 MG TAB [Apresoline 25 MG TABLET] 50 mg PO TID 01/18/18 [History] Hydrocodone/Acetaminophen [Rumsey 7.5-325 Tablet] 1 each PO Q4-6HPRN PRN [History] Nebivolol HCl 5 MG [Bystolic 5 MG] 10 mg PO DAILY 01/18/18 [History] PANTOPRAZOLE 40 mg Tablet [Protonix 40MG Tablet] 40 mg PO BID 01/18/18 [ History] Sevelamer Carbonate [Renvela] 0.8 gm PO TID 01/18/18 [History] Venlafaxine HCl ER 75 mg [Effexor XR 75 MG] 150 mg PO DAILY 01/18/18 [ History] hydrOXYzine HCl [Hydroxyzine HCl] 10 mg PO QHS 01/18/18 [History] Acetaminophen/Diphenhydramine [Acetaminophen Pm Caplet] 1 each PO HS 06/17/18 [ History] Albuterol 2.5 mg/3 ml Neb [Proventil 2.5 mg/3 ml Neb] 2.5 mg IH Q6HPRN PRN 06/17/18 [History] Albuterol Sulfate [Albuterol Sulfate Hfa] 7 gm IH Q4HPRN PRN 06/17/18 [History] Budesonide [Budesonide ER] 9 mg PO DAILY 06/17/18 [History] Ergocalciferol (Vitamin D2) [Drisdol] 50,000 unit PO UD 06/17/18 [History] Hx Tetanus, Diphtheria Vaccination/Date Given: No Hx Influenza Vaccination/Date Given: Yes Hx Pneumococcal Vaccination/Date Given: Yes Immunizations Up to Date: No - Review of Systems Constitutional: No Fever, No Chills Eyes: No Symptoms Ears, Nose, & Throat: No Symptoms Respiratory: No Symptoms, No Cough, No Dyspnea Cardiac: No Symptoms, No Chest Pain, No Edema, No Syncope Abdominal/Gastrointestinal: No Abdominal Pain, No Nausea, No Vomiting, No Diarrhea Genitourinary Symptoms: No Symptoms, No Dysuria Musculoskeletal: Other (ANKLE SWELLING), No Back Pain, No Neck Pain Skin: Other (BLISTERS OVER LEFT KEARNEY, CALF AND BUTTOCK), No Rash Neurological: No Dizziness, No Focal Weakness, No Sensory Changes Psychological: No Symptoms Endocrine: No Symptoms All Other Systems: Reviewed and Negative - Past Medical History Pertinent Past Medical History: Yes Neurological History: Stroke, TIA ENT History: No Pertinent History Cardiac History: Hypertension Respiratory History: Bronchitis, COPD Endocrine Medical History: No Pertinent History Musculoskeletal History: Arthritis GI Medical History: Colorectal Cancer, Hernia History: Renal Disease Psycho-Social History: No Pertinent History Female Reproductive Disorders: No Pertinent History Other Medical History: AAA. Renal failure - Past Surgical History Past Surgical History: Yes Neuro Surgical History: No Pertinent History Cardiac: No Pertinent History Respiratory: No Pertinent History Gastrointestinal: Hemorrhoidectomy Genitourinary: No Pertinent History Musculoskeletal: Other Female Surgical History: Hysterectomy Other Surgical History: FISTULA PLACED; PORT PLACED FOR CHEMO X2; BLADDER SURGERY; LEFT FOOT SURGERY; MASS REMOVED FROM HER LEFT SHOULDER AREA, thyroid, lump removed from R breast - Social History Smoking Status: Former smoker Exposure to second hand smoke: No Drug Use: none Patient Lives Alone: Yes - Female History Hx Now: No - Nursing Vital Signs Nursing Vital Signs: Initial Vital Signs Temperature 97.5 F 06/17/18 17:40 Pulse Rate 71 06/17/18 17:40 Respiratory Rate 18 06/17/18 17:40 Blood Pressure 178/69 06/17/18 17:40 O2 Sat by Pulse Oximetry 95 06/17/18 17:40 Pain Scale Pain Intensity 3 - Physical Exam General Appearance: alert Eyes, Ears, Nose, Throat Exam: moist mucous membranes Neck Exam: non-tender, supple Cardiovascular/Respiratory Exam: chest non-tender, normal breath sounds, regular rate/rhythm, no respiratory distress Gastrointestinal/Abdominal Exam: non-tender, guarding Back Exam: normal inspection, other (SUPERFICIAL ULCERATION 2CM X 2CM OVER LEFT BUTTOCK, NO DRAINAGE, OR ERYTHEMA), No vertebral tenderness Knees Exam: left knee: other (THERE IS A SUPERFICIAL BULLAE 2CM X 1.5CM OVER MID LEFT KEARNEY, RUPTURED BULLAE WITH DRAINAGE OVER LEFT CALF MEDIAL ASPECT NO SURROUNDING ERYTHRMA, ) Ankle Exam: bilateral ankle: swelling (BILATERAL 1+ PITTING EDEMA, BILAT PEDIS PULSES 2+) Neuro/Tendon Exam: normal sensation, normal motor functions Mental Status Exam: alert, oriented x 3, cooperative Skin Exam: normal color, warm, dry SpO2 Interpretation: normal SpO2: 95 Ordered Tests: Active Orders 24 hr Category Date Time Status BMP Stat Lab 06/17/18 19:25 Completed CBC W DIFF Stat Lab 06/17/18 19:25 Completed Medication Summary Discontinued Medications Generic Name Dose Route Start Last Admin Trade Name Freq PRN Reason Stop Dose Admin Amoxicillin/Clavulanate Potassium 875 mg 06/17/18 18:16 06/17/18 18:24 Augmentin 875-125 Tablet PO 06/17/18 18:17 875 mg STAT ONE Administration Amoxicillin/Clavulanate Potassium Confirm 06/17/18 18:23 Augmentin 875-125 Tablet Administered 06/17/18 18:24 Dose 875 mg .ROUTE .[facility] ONE Lab/Rad Data: Laboratory Result Diagrams 06/17/18 19:25 06/17/18 19:25 Laboratory Results 06/17/18 06/17/18 Range/Units 19:25 19:25 WBC 3.8 L (4.0-10.5) K/mm3 RBC 3.77 L (4.1-5.4) M/mm3 Hgb 10.9 L (12.0-16.0) gm/dl Hct 33.7 L (35-47) % MCV 89.4 (78-100) fl MCH 28.9 (26-32) pg MCHC 32.3 (32-36) g/dl RDW 18.4 H (11.5-14.0) % Plt Count 188 (150-450) K/mm3 MPV 10.3 H (6-9.5) fl Gran % 84.5 H (36.0-66.0) % Eos # (Auto) 0.01 (0-0.5) Absolute Lymphs (auto) 0.27 L (1.0-4.6) Absolute Monos (auto) 0.30 (0.0-1.3) Lymphocytes % 7.2 L (24.0-44.0) % Monocytes % 8.0 (0.0-12.0) % Eosinophils % 0.3 (0.00-5.0) % Basophils % 0.0 (0.0-0.4) % Absolute Granulocytes 3.17 (1.4-6.9) Basophils # 0 (0-0.4) Sodium 137 (137-145) mmol/L Potassium 3.4 L (3.5-5.1) mmol/L Chloride 98 (98-107) mmol/L Carbon Dioxide 30 (22-30) mmol/L Anion Gap 12.6 (5-15) MEQ/L BUN 26 H (7-17) mg/dL Creatinine 1.76 H (0.52-1.04) mg/dL Estimated GFR 29.8 ML/MIN Glucose 113 H (74-106) mg/dL Calcium 8.6 (8.4-10.2) mg/dL - Progress Progress Note: 06/17/18 18:25 ADMINISTERED AUGMENTIN 875MG ORALLY - Departure Departure Disposition: Home Clinical Impression: BULLAE LEFT LOWER EXTRMITY , DECUBITUS LEFT BUTTOCK Condition: Stable Critical Care Time: No Referrals: VENTURA RICHMOND [Primary Care Provider] - Additional Instructions: ELEVATE ANKLES ABOVE WAIST WHILE SITTING OR SUPINE POSITION. ANTIBIOTIC AUGMENTIN 875MG TWICE DAILY FOR 10 DAYS. TYLENOL EVERY 4 HOURS FOR FEVER OR PAIN. CONSULT YOUR PRIMARY CARE PROVIDER FOR FOLLOWUP IN 1 WEEK. APPLY BACITRACIN OINTMENT OVER LESIONS TWICE DAILY FOR 10 DAYS. Prescriptions: Amox Tr/Potass Clav. 875 mg [Augmentin 875-125 Tablet] 875 mg PO BID #20 tablet
[2018-06-17] MEDS ORDERED: Augmentin 875-125 Tablet ONE (18:23)
[2018-06-17 19:19] VITALS: BP 182/81
[2018-06-17 19:32] LABS: Basophil (Absolute #) 0 (0-0.4); Eosinophil % 0.3 % (0.00-5.0); Eosinophil (Absolute #) 0.01 (0-0.5); Granulocyte Absolute (ANC) 3.17 (1.4-6.9); Granulocytes % 84.5 % (36.0-66.0); Hematocrit 33.7 % (35-47); Hemoglobin 10.9 gm/dl (12.0-16.0); Lymphocyte (Absolute #) 0.27 (1.0-4.6); Lymphocytes % 7.2 % (24.0-44.0); Mean Cell Volume 89.4 fl (78-100); Mean Corpuscular Hemoglobin 28.9 pg (26-32); Mean Corpuscular Hgb Concent. 32.3 g/dl (32-36); Mean Platelet Volume 10.3 fl (6-9.5); Platelet Count 188 K/mm3 (150-450); Red Blood Count 3.77 M/mm3 (4.1-5.4); Red Cell Distribution Width 18.4 % (11.5-14.0); White Blood Count 3.8 K/mm3 (4.0-10.5)
[2018-06-17 19:47] LABS: ANION GAP 12.6 MEQ/L (5-15); Calcium 8.6 mg/dL (8.4-10.2); Creatinine 1 1.76 mg/dL (0.52-1.04); Potassium 3.4 mmol/L (3.5-5.1)
[2018-06-17 20:07] VITALS: O2SAT 95
[2018-06-17 20:50] LABS: Slide Review 1 YES
== END 2018-06-17 20:30 | disposition home or self-care (01) ==
LOC: ED 17:29
DX: R23.8 Other skin changes (principal); S80.822A Blister (nonthermal), left lower leg, initial encounter; S80.821A Blister (nonthermal), right lower leg, initial encounter; L89.329 Pressure ulcer of left buttock, unspecified stage; J44.9 Chronic obstructive pulmonary disease, unspecified; I12.9 Hypertensive chronic kidney disease with stage 1 through stage 4 chronic kidney disease, or unspecified chronic kidney disease; N18.9 Chronic kidney disease, unspecified; Z99.2 Dependence on renal dialysis; M19.90 Unspecified osteoarthritis, unspecified site; Z79.899 Other long term (current) drug therapy; I71.4 Abdominal aortic aneurysm, without rupture; Z86.73 Personal history of transient ischemic attack (TIA), and cerebral infarction without residual deficits
CPT/HCPCS: 36415; 80048; 85025; 86689; 99283; A9270-GY